=== PATIENT | female | born 1970 | race Caucasian/White ===

== ENCOUNTER 2017-02-23 07:13 | Emergency (ER) | payer OTHER ==
[~2017-02-23 07:13] MED LIST: AMBIEN10 MG PO; COMPAZINE10 M PO; SARAFEM10 MG
[2017-02-23] MEDS ORDERED: NATURE THROI PO (07:54)
[2017-02-23 08:52] LABS: ANION GAP 15 mmol/L (0-20); BLOOD UREA NITROGEN 7 mg/dl (6-24); CALCIUM 8.7 mg/dl (8.5-10.5); CARBON DIOXIDE-VENOUS 25 mmol/L (22-32); CHLORIDE 109 mmol/l (96-110); GLUCOSE 117 mg/dL (70-110); POTASSIUM 4.1 mmol/L (3.7-5.1); SODIUM 145 mmol/L (135-145); eGFR VALUE FOR BLACK >90 mL/Min
[2017-02-23 09:00] LABS: BASO % 0.5 % (0-2); BASO ABSOLUTE COUNT 0.1 tho/cmm (0.0-0.2); EOS % 1.1 % (0-7); EOSINOPHIL ABSOLUTE COUNT 0.1 tho/cmm (0.0-0.7); HCT-HEMATOCRIT 38.9 % (34.0-49.0); HGB-HEMOGLOBIN 13.1 gm/dl (12.0-15.5); IMMATURE GRANULOCYTES ABSOLUTE 0.02 tho/cmm (0-0.03); IMMATURE GRANULOCYTES PERCENT 0.2 % (0-0.3); LYMPH % 14.8 % (20-45); LYMPH ABSOLUTE COUNT 1.4 tho/cmm (0.8-4.5); MCH (MEAN CORPUSCULAR HGB) 30.6 pg (28.0-32.0); MCHC MEAN CORPUSCULAR HGB CONC 33.7 % (32.0-36.0); MCV (MEAN CELL VOLUME) 90.9 fl (82.0-96.0); MEAN PLATELET VOLUME 9.5 cmc (9.4-12.4); NEUTROPHIL ABSOLUTE COUNT 6.9 tho/cmm (1.6-8.0); NEUTROPHIL-AUTOMATED 6.9 tho/cmm (1.6-8.0); NEUTROPHILS % 72.4 % (40-80); PLATELET COUNT 313 tho/cmm (150-450); RED BLOOD COUNT 4.28 mil/cmm (4.00-5.20); RED CELL DISTRIBUTION WIDTH 13.1 % (12.4-16.4); WHITE BLOOD COUNT 9.5 tho/cmm (4.0-10.0)
[2017-02-23] MEDS ORDERED: LEVAQUIN500 M1 PO (09:08)
[2017-02-23] MEDS ORDERED: NORCO 5-325 TA1 EACH PO (09:08)
[2017-02-23] MEDS ORDERED: COMPAZINE10 MG PO (09:54)
== END 2017-02-23 09:55 ==
LOC: EDMED 07:13
PROVIDERS: Emergency Medicine
DX: J02.0 Streptococcal pharyngitis (principal); J18.9 Pneumonia, unspecified organism; E07.9 Disorder of thyroid, unspecified; Z87.442 Personal history of urinary calculi; Z79.890 Hormone replacement therapy
CPT/HCPCS: J0696; J1885; J7030